=== PATIENT | male | born 1985 | race Caucasian/White ===

== ENCOUNTER 2020-12-08 18:34 | Emergency (ER) | payer OTHER ==
[~2020-12-08] VITALS: Ht 175.3 cm; Wt 61.2 kg
[~2020-12-08 18:34] MED LIST: CHLORDIAZEPOXID25 MG PO
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
--- NOTE | 2020-12-10 19:00 | EKG ---
[facility] [address] [facility] [place] [address] Signed Normal sinus rhythm Normal ECG No previous ECGs available Confirmed by NISHANT HERNANDEZ MD ([id number]) on 12/10/2020 6:59:54 PM Electronically Signed By: NISHANT HERNANDEZ MD 12/10/20 1900 PATIENT NAME: KATELYN CORONADO Electrocardiogram DATE OF : 83 PHYSICIAN: NISHANT HERNANDEZ MD REPORT #: [id number] REPORT IS CONFIDENTIAL AND NOT TO BE RELEASED WITHOUT AUTHORIZATION
== END 2020-12-09 00:53 | disposition home or self-care (01) ==
LOC: ED 18:34
DX: R10.13 Epigastric pain (principal); F10.239 Alcohol dependence with withdrawal, unspecified; E83.42 Hypomagnesemia
CPT/HCPCS: 80053; 81001; 83690; 83735; 84484; 85025; 93005; 93010; 96374; 96375; 99285-25; J1885; J2405; J3475